=== PATIENT | female | born 1955 | race Caucasian/White ===

== ENCOUNTER 2019-11-02 09:23 | Emergency (ER) | payer OTHER, SELFPAY ==
--- NOTE | ~2019-11-02 | XR_ITS ---
XR ankle LT min 3V 11/02/2019 09:47 INDICATION: Left ankle pain and swelling PROCEDURE: 4 views left ankle COMPARISON: No prior studies for comparison. FINDINGS: Fracture, dislocation or subluxation is not identified. Mild lateral soft tissue swelling. Ankle mortise intact. No foreign bodies are identified. IMPRESSION: 1: NO ACUTE BONE OR JOINT ABNORMALITY IDENTIFIED. Reviewed, dictated and finalized at location A.
--- NOTE | 2019-11-02 09:29 | ED.LOWEXIN ---
HPI - Extremity Injury (Lower) General Chief Complaint: Extremity Injury, Lower Stated Complaint: left ankle sprain Time Seen by Provider: 11/02/19 09:29 Source: patient and RN notes reviewed History of Present Illness HPI Narrative: Patient is a 64-year-old female that presents the urgent care with complaints of left ankle sprain. Patient states that she rolled her left ankle while doing yard work yesterday. Patient states that the swelling has increased since yesterday. Patient has been ambulating on the extremity. Patient states that she has been icing and elevating the left ankle. Has not taken anything oral for pain. Denies any other acute complaints or injuries. No acute distress noted. Patient had plan of care. Related Data Home Medications Medication Instructions Recorded Confirmed spironolactone 25 mg tablet 25 mg PO DAILY 07/02/19 11/02/19 trazodone 50 mg tablet 50 mg PO BID 07/02/19 11/02/19 Allergies Allergy/AdvReac Type Severity Reaction Status Date / Time No Known Allergies Allergy Mild Verified 11/02/19 09:29 Review of Systems Review of Systems: Narrative: CONSTITUTIONAL: Denies fever, chills, or sweats. EYES: Denies visual changes, redness, or discharge. ENT: Denies rhinorrhea, congestion, sore throat, or otalgia. CARDIOVASCULAR: Denies chest pain, palpitations, or edema. RESPIRATORY: Denies cough or dyspnea. GASTROINTESTINAL: Denies abdominal pain, nausea, vomiting, or diarrhea. GENITOURINARY: Denies dysuria or hematuria. SKIN: Denies rash or itching. MUSCULOSKELETAL: Reports of left ankle pain and swelling due to injury NEUROLOGIC: Denies headache, numbness, or weakness. All other systems reviewed are negative, except as documented in HPI. PMFSH Social History Social History Smoking status: Never smoker Second hand tobacco smoke exposure: No Alcohol intake: never Gender identity (if verbalized by the patient): Female Comments At the time of my signature, I reviewed and agree with the nursing past medical, surgical, social, and family history. There is no relevant family history pertinent to the patient complaint. Exam Narrative: Exam Narrative: GENERAL: This is a well-nourished, well-developed patient, in no apparent distress. HEAD: normocephalic, atraumatic. EYES: PERRL. Sclera clear/white. Vision is grossly intact. EARS: External ears normal NOSE: External nose normal with no obvious nasal discharge THROAT: Mucous membranes moist NECK: Neck supple SKIN: warm, intact with no suspicious lesions or rash, good texture and turgor. NEURO: awake, alert, and oriented to person, place and time. There were no obvious focal neurologic abnormalities. EXTREMITIES: Moderate tenderness and edema noted to the lateral left malleolus. Left pedal pulse positive and strong. Left lower extremity capillary refill less than 2 seconds. Range of motion within normal limits, pain noted. Course Vital Signs Vital signs: Vital Signs Temperature 98.9 F 11/02/19 09:40 Pulse Rate 87 11/02/19 09:40 Respiratory Rate 16 11/02/19 09:40 Blood Pressure 138/73 11/02/19 09:40 Pulse Oximetry 98 11/02/19 09:40 Temperature 98.9 F 11/02/19 09:40 Pulse Rate 87 11/02/19 09:40 Respiratory Rate 16 11/02/19 09:40 Blood Pressure 138/73 11/02/19 09:40 Pulse Oximetry 98 11/02/19 09:40 Reviewed MDM - Extremity Injury (Lower) MDM Narrative Medical decision making narrative: Reviewed x-ray results with the patient. Patient is aware there is no fracture or bone abnormality noted on the x-ray. Advised the patient to use Forest wrap to the left ankle for comfort and support. Continue to elevate and ice. May use Tylenol/ibuprofen as needed for pain. Limit weightbearing activity until tolerated as normal. Wear supportive shoe. Follow-up with PCP within 2 to 5 days or for worsening symptoms failure to improve Differential Diagnosis Different
[2019-11-02 09:40] VITALS: BP 138/73; PULSE 87; RESP 16; TEMP 37.2; O2SAT 98
== END 2019-11-02 10:05 | disposition home or self-care (01) ==
PROVIDERS: Emergency Provider Nurse Practitioner Family; PCP Family Medicine
DX: S93.402A Sprain of unspecified ligament of left ankle, initial encounter (principal); W18.49XA Other slipping, tripping and stumbling without falling, initial encounter
CPT/HCPCS: 73610; 99213; G0463

== ENCOUNTER → 2021-02-05 07:17 | Outpatient (CLI) | payer OTHER, SELFPAY ==
[2021-02-06 21:41] LABS: SARS-CoV-2 RNA PCR Negative
== END ==
PROVIDERS: PCP Family Medicine; Visit Provider Physician Assistant
DX: Z20.822 Contact with and (suspected) exposure to COVID-19 (principal); R05 Cough
CPT/HCPCS: C9803; U0003; U0005

== ENCOUNTER → 2022-12-05 12:51 | Outpatient (CLI) | payer MEDICARE, SELFPAY ==
--- NOTE | ~2022-12-05 | US_ITS ---
. EXAMINATION: US soft tissue LE RT DATE: 12/05/2022 13:22 INDICATION: Right thigh mass. TECHNIQUE: Multiple grayscale and Doppler ultrasound images of the right thigh were obtained. COMPARISON: None FINDINGS: There are 2.0 cm, 1.5 cm, and 1.6 cm isoechoic subcutaneous masses in the right thigh. IMPRESSION: 1. Three subcutaneous masses in the right thigh, likely lipomas. Reviewed, dictated and finalized at location A.
--- NOTE | ~2022-12-05 | US_ITS ---
EXAMINATION: US soft tissue LE DATE: 12/05/2022 13:22 INDICATION: Left thigh mass. TECHNIQUE: Multiple grayscale and Doppler ultrasound images of the left thigh were obtained. COMPARISON: None FINDINGS: There are 1.5 cm and 0.4 cm isoechoic subcutaneous masses in left thigh. IMPRESSION: 1. Subcutaneous masses in left thigh, likely lipomas. Reviewed, dictated and finalized at location A.
== END ==
PROVIDERS: PCP Family Medicine; Visit Provider Physician Assistant
DX: R22.41 Localized swelling, mass and lump, right lower limb (principal); R22.42 Localized swelling, mass and lump, left lower limb
CPT/HCPCS: 76882

== ENCOUNTER 2022-12-29 10:51 | Emergency (ER) | payer MEDICARE, SELFPAY ==
--- NOTE | ~2022-12-29 | XR_ITS ---
EXAMINATION: XR shoulder LT min 2V INDICATION: Left shoulder pain TECHNIQUE: Four views of the left shoulder are submitted. COMPARISON: None FINDINGS: Normal alignment. No fracture. There is mild osteoarthritis of the glenohumeral and acromio clavicular joints. Soft tissues are unremarkable. IMPRESSION: 1. No acute osseous abnormality. Reviewed, dictated and finalized at location L.
[2022-12-29 11:08] VITALS: BP 142/65; PULSE 92; RESP 16; TEMP 36.4; O2SAT 98
--- NOTE | 2022-12-29 12:07 | ED.EXTPRO ---
HPI - Extremity Problem General Chief complaint: Extremity Injury, Upper Stated complaint: left shoulder pain Time Seen by Provider: 12/29/22 11:56 Source: patient and RN notes reviewed Mode of arrival: ambulatory Limitations: no limitations History of Present Illness HPI Narrative: Patient presents today complaining of left shoulder pain. She fell from the 3rd rung of the ladder onto grass onto her left elbow and upper arm 2 days ago. Yesterday she felt some tingling in her fingers, but this has since resolved. She currently rates her pain 5/10 and has been taking Tylenol with some short-term relief. Related Data Home Medications Medication Instructions Recorded Confirmed cholecalciferol (vitamin D3) 250 250 mcg PO DAILY 12/29/22 12/29/22 mcg (10,000 unit) tablet Allergies Allergy/AdvReac Type Severity Reaction Status Date / Time No Known Allergies Allergy Mild Verified 12/29/22 11:27 Review of Systems Review of Systems: CONSTITUTIONAL: Denies body aches, fever, chills, or sweats. EYES: Denies visual changes, redness, or discharge. ENT: Denies rhinorrhea, congestion, sore throat, or otalgia. CARDIOVASCULAR: Denies chest pain, palpitations, or edema. RESPIRATORY: Denies cough or dyspnea. GASTROINTESTINAL: Denies abdominal pain, nausea, vomiting, or diarrhea. GENITOURINARY: Denies dysuria or hematuria. SKIN: Denies rash, itching, or wounds. MUSCULOSKELETAL: Denies back pain, or myalgia.+ left shoulder pain NEUROLOGIC: Denies headache, numbness, tingling, or weakness. PSYCH: Denies depression or anxiety. [facility] Past Medical History Medical History Arthritis HLD (hyperlipidemia) Mitral valve regurgitation Normal colonoscopy (~2012) Surgical History Surgical History H/O breast augmentation H/O excision of mass ~10 years ago excision of RLE skin mass, excision RUE skin mass. Skin cancer screening Basal cell, Removal of face and back, July 2021. Family History Family History Mother Patient's mother is Other Carcinoma of colon Diabetes mellitus Family history of coronary artery disease Family history of malignant neoplasm of breast in first degree relative Family history of malignant neoplasm of urinary bladder Family history of primary malignant neoplasm of liver Social History Social History Smoking status: Never smoker Second hand tobacco smoke exposure: No Alcohol intake: never Substance use: never Substance use type: does not use Lack of Transportation: No Lack of Food: Never True Current Housing: I Have Housing Concerned About Future Housing: No Difficulty Paying Gas/Electric Bills: No Difficulty Paying for Meds: No Currently Unemployed: No Education: High School Diploma/GED Difficulty w/ Childcare or Family Care: No Living arrangements: with family Occupation/Education: retired Gender identity (if verbalized by the patient): Female Comments At time of signature, I have reviewed and agree with nursing past medical, surgical, social and family history unless otherwise noted. Please see nursing chart for further information. There is no relevant family history pertinent to the presenting complaint Exam Narrative: GENERAL: Well-appearing, well-nourished, and in no acute distress. HEAD: Normocephalic, atraumatic. EYES: EOMI. No redness or drainage. Conjunctivae normal. ENT: Mucous membranes pink and moist. NECK: Normal AROM. CHEST: No respiratory distress. EXTREMITIES: Left shoulder: Some mild tenderness to the trapezius and left cervical paraspinal muscles. No bony tenderness about the shoulder or clavicle. No bony tenderness of the humerus. No tenderness of the olecranon
== END 2022-12-29 12:18 | disposition home or self-care (01) ==
PROVIDERS: Emergency Provider Nurse Practitioner; PCP Family Medicine
DX: S46.812A Strain of other muscles, fascia and tendons at shoulder and upper arm level, left arm, initial encounter (principal); W11.XXXA Fall on and from ladder, initial encounter; M19.90 Unspecified osteoarthritis, unspecified site; E78.5 Hyperlipidemia, unspecified; I34.0 Nonrheumatic mitral (valve) insufficiency; Z85.828 Personal history of other malignant neoplasm of skin
CPT/HCPCS: 73030; 99213; G0463

== ENCOUNTER 2023-07-07 13:37 | Outpatient (CLI) | payer MEDICARE, SELFPAY ==
--- NOTE | ~2023-07-07 | US_ITS ---
EXAMINATION: US soft tissue LE LT DATE: 07/07/2023 14:34 INDICATION: Benign lipomatous neoplasm of skin and subcutaneous tissue. TECHNIQUE: Multiple grayscale and Doppler ultrasound images of the left lower limb were obtained. COMPARISON: Ultrasound 12/05/2022 FINDINGS: There is no abnormal mass in the patient's areas of concern in left thigh. IMPRESSION: 1. No abnormal mass in the patient's areas of concern in left thigh. Reviewed, dictated and finalized at location E. 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
--- NOTE | ~2023-07-07 | US_ITS ---
EXAMINATION: US soft tissue LE RT DATE: 07/07/2023 14:34 INDICATION: Benign lipomatous neoplasm of skin and subcutaneous tissues. TECHNIQUE: Multiple grayscale and Doppler ultrasound images of the right lower limb were obtained. COMPARISON: Ultrasound 12/05/2022 FINDINGS: There are 2.2 cm and 1.7 cm subcutaneous masses in right thigh that are slightly hyperechoi c to subcutaneous fat with similar echotexture to subcutaneous fat. IMPRESSION: 1. Two subcutaneous masses in right thigh, consistent with lipomas. Reviewed, dictated and finalized at location E. CIATE PROFESSOR OF ENGINEERING
== END 2023-07-07 13:38 | disposition home or self-care (01) ==
PROVIDERS: PCP Family Medicine; Visit Provider Surgery
DX: D17.24 Benign lipomatous neoplasm of skin and subcutaneous tissue of left leg (principal); D17.23 Benign lipomatous neoplasm of skin and subcutaneous tissue of right leg; R22.41 Localized swelling, mass and lump, right lower limb
CPT/HCPCS: 76882

== ENCOUNTER 2024-11-16 09:55 | Emergency (ER) | payer MEDICARE, SELFPAY ==
[2024-11-16 10:18] VITALS: BP 128/79; PULSE 93; RESP 16; TEMP 36.6; O2SAT 99
--- NOTE | 2024-11-16 10:25 | ED.URI ---
HPI - URI/Sore Throat General Chief Complaint: Upper Respiratory Infection Stated Complaint: Sinus/Nose Wound Time Seen by Provider: 11/16/24 10:26 Source: patient, RN notes reviewed and old records reviewed Mode of arrival: ambulatory Limitations: no limitations History of Present Illness HPI Narrative: 69 year old female presents to [facility] care with complaints of sore throat,runny nose and some body aches with fatigue for one week duration. Patient reports that she was also ill for awhile with similar symptoms in October which seemed to improve after about a week while she was in [place]. Patient reports that she has been taking Tylenol cold medication and Coricidin brand medication also. Patient has irritated area under her nose from all the sinus drainage and has felt feverish. Patient reports that she did do a home COVID test on Monday which was negative. MD elicited complaint: fever (has felt feverish), cough, sore throat, rhinorrhea, nasal congestion and sinus pain Pertinent past history: sinusitis Onset (ago): week(s) (1 week) Consistency: constant Pain scale (0-10): 4 Description of mucous: clear Able to tolerate fluids by mouth: Yes Treatments prior to arrival: cold medicine (Tylenol cold medication, Coricidin) Related Data Home Medications Medication Instructions Recorded Confirmed Last Taken Type cholecalciferol (vitamin D3) 250 250 mcg PO DAILY 12/29/22 07/29/24 Unknown History mcg (10,000 unit) tablet Allergies Allergy/AdvReac Type Severity Reaction Status Date / Time No Known Allergies Allergy Mild Verified 11/16/24 10:17 Review of Systems Review of Systems: CONSTITUTIONAL: Reports malaise, chills, sweats, has felt feverish EYES: Denies visual changes, redness, or discharge. ENT: Reports rhinorrhea, congestion, sinus pain,no otalgia and positive sore throat. CARDIOVASCULAR: Denies chest pain, palpitations, or edema. RESPIRATORY: Reports occasional cough. Denies dyspnea. GASTROINTESTINAL: Denies abdominal pain, nausea, vomiting, diarrhea SKIN: Denies rash or itching. MUSCULOSKELETAL:Reports some myalgia. NEUROLOGIC: Denies headache. All systems reviewed & are unremarkable except as noted in HPI and below PMFSH Past Medical History Medical History Squamous cell carcinoma of left shoulder Basal cell carcinoma of nose Mitral valve regurgitation Normal colonoscopy (~2012) HLD (hyperlipidemia) Arthritis Surgical History Surgical History H/O excision of mass ~10 years ago excision of RLE skin mass, excision RUE skin mass. Skin cancer screening Basal cell, Removal of face and back, July 2021. H/O breast augmentation Family History Family History Mother Patient's mother is Other Carcinoma of colon Diabetes mellitus Family history of coronary artery disease Family history of malignant neoplasm of breast in first degree relative Family history of malignant neoplasm of urinary bladder Family history of primary malignant neoplasm of liver Social History Social History Smoking status: Never smoker Second hand tobacco smoke exposure: No Alcohol intake: never Substance use: never Substance use type: does not use Lack of Transportation: No Lack of Food: Never True Current Housing: I Have Housing Concerned About Future Housing: No Difficulty Paying Gas/Electric Bills: No Difficulty Paying for Meds: No Currently Unemployed: No Education: High School Diploma/GED Difficulty w/ Childcare or Family Care: No Living arrangements: with family Occupation/Education: retired Gender identity (if verbalized by the patient): Female Comments At time of signature, agree with nursing past medical, surgical, social and family history. There is no relevant family history pertinent to the presenting complaint Exam Narrative: GENERAL: Well-appearing, well-nourished, and in no acute distress. HEAD: Normocephalic EYES: PERRLA, conjunctivae clear ENT: Nares clear, turbinates edematous and erythematous, clear discharge. Mucous membranes moist. TM pearly terrazas with dull light reflex bilaterally; no tragal tenderness. Oropharynx erythematous without lesions. Tonsils not enlarged and without exudate, no drooling, no hoarseness, no trismus, uvula midline.post nasal drainage noted NECK: Supple. No lymphadenopathy CHEST: Clear to auscultation, breath sounds equal. No wheezing, rhonchi, rales, or stridor. No respiratory distress, speaks in full sentences. occasional dry cough noted SAO2 99% on room air HEART: Regular rate and rhythm. No murmur heard. SKIN: Warm, dry, excoriated tissue under nares from sinus congestion and frequent blowing of nose. NEURO: Alert and oriented x3. PSYCH: Normal mood and affect Course Course Emergency Course: Patient is aware of diagnosis, understands and agrees to treatment plan. Anticipatory guidance given. Patient agrees to follow-up as directed and is aware of reasons to seek care at the emergency department. Portions of this record may have been created with voice recognition software Level of Care: Express Care Visit Vital Signs Vital signs: Vital Signs Temperature 36.6 C 11/16/24 10:18 Pulse Rate 93 11/16/24 10:18 Respiratory Rate 16 11/16/24 10:18 Blood Pressure 128/79 11/16/24 10:18 Pulse Oximetry 99 11/16/24 10:18 Oxygen Delivery Room Air 11/16/24 10:18 Temperature 36.6 C 11/16/24 10:18 Pulse Rate 93 11/16/24 10:18 Respiratory Rate 16 11/16/24 10:18 Blood Pressure 128/79 11/16/24 10:18 Pulse Oximetry 99 11/16/24 10:18 Oxygen Delivery Room Air 11/16/24 10:18 Reviewed MDM - URI/Sore Throat MDM Narrative Medical decision making narrative: Differential diagnosis considered: Shine virus, strep pharyngitis, allergic rhinitis, upper respiratory tract infection, sinusitis, rhinosinusitis, nasopharyngitis. viral pharyngitis, otitis media, otitis externa, pneumonia, bronchitis, viral cough syndrome, viral syndrome, and influenza. Exam findings show no acute concerns or changes; patient is non-toxic appearing and is in no distress. Patient is appropriate for outpatient treatment and follow-up. Differential Diagnosis Differential diagnosis: Likely upper respiratory infection, sinusitis, viral infection, pharyngitis and other Medical Records Attestation: I reviewed the patient's medical records. Lab Data Attestation: I reviewed the patient's lab results. Lab results narrative: strep screen negative, culture sent Critical Care Time Critical Care Time Critical Care Time: No Discharge Plan Discharge Clinical Impression: Sinusitis Qualifiers: Sinusitis location: pansinusitis Chronicity: acute Recurrence: non-recurrent Qualified Code(s): J01.40 - Acute pansinusitis, unspecified Patient Disposition: Home Condition: Stable Instructions: Antibiotic Form, Sinusitis (ED) Additional Instructions: Increase fluids especially juices and water [id number] cough and cold medicine of your choice for your symptoms Zyrtec Claritin or Cheryl daily include Coricidin brand decongestant Tylenol or ibuprofen for any fever pain heat to the face 20-30 minutes 4-6 times a day for pain Salt water gargles, throat lozenges or throat sprays as desired Antibiotic as directed--finished the medication If your symptoms persist, change or worsen significantly before you can contact your personal physician then please, without delay, go to the emergency department for further evaluation. Follow-up with PCP in 7-10 days or sooner if needed Follow up with PCP soon in regards to your blood pressure which is elevated above threshold for referral. Blood pressure above 120/80 may indicate pre-hypertension. Minimal elevation systolic 128/79 Patient Language: Estonian Prescriptions: New amoxicillin-pot clavulanate 875-125 mg tablet 1 tablet PO Q12H Qty: 20 0RF Rx Instructions: take probiotics while taking this medication No Action cholecalciferol (vitamin D3) 250 mcg (10,000 unit) Tablet 250 mcg PO DAILY prednisone 20 mg tablet 20 mg PO DAILY Qty: 5 0RF trazodone 50 mg tablet 25 mg PO QHS Qty: 45 3RF triamcinolone acetonide 0.1 % cream 1 applic topical BID Qty: 15 0RF meloxicam 15 mg tablet 15 mg PO DAILY Qty: 30 3RF Follow-up/Referrals: Melissa He MD [Primary Care Provider] - Time of Disposition: 10:39 Quality Vernon Coma Scale Eyes: Open Verbal: Oriented and Alert Motor: Follows Commands Elizabeth Coma Total Score: 15
[2024-11-16 10:28] LABS: EDSTREPNEGPOS1 Negative (Negative)
== END 2024-11-16 10:53 | disposition home or self-care (01) ==
PROVIDERS: Emergency Provider Registered Nurse; PCP Family Medicine
DX: J01.40 Acute pansinusitis, unspecified (principal); E78.5 Hyperlipidemia, unspecified; M19.90 Unspecified osteoarthritis, unspecified site; I34.0 Nonrheumatic mitral (valve) insufficiency; Z85.828 Personal history of other malignant neoplasm of skin
CPT/HCPCS: 87081; 87880; 99213; G0463

== ENCOUNTER 2025-02-07 10:08 | Outpatient (CLI) | payer MEDICARE, SELFPAY ==
--- NOTE | ~2025-02-07 | DEXA_ITS ---
Bone Density Report Name: JORDANA BAEZ Age: 69 Sex: Female Ethnicity: White Date of : 1955 Indication: postmenopausal; screening for osteoporosis; Referring Provider: JEREMI PUENTE Study: Bone densitometry was performed. Exam Date: February 07, 2025 Accession number: [id number] Bone Density: Region BMD T-score Z-score Classification AP Spine(L1-L4) 1.030 -0.2 1.8 Normal Femoral Neck (Left) 0.782 -0.6 1.1 Normal Total Hip (Left) 0.919 -0.2 1.2 Normal Femoral Neck (Right) 0.796 -0.5 1.2 Normal Total Hip (Right) 0.921 -0.2 1.2 Normal Total Hip Mean 0.920 -0.2 1.2 Normal World Health Organization criteria for BMD impression classify patients as: Normal (T-score at or above -1.0), Osteopenia (T-score between -1.0 and -2.5), or Osteoporosis (T-score at or below -2.5). 10-year Fracture Risk: FRAX not reported because: All T-scores for Spine Total, Hip Total, Femoral Neck at or above -1.0 Clinical Information Provided by Patient: Patient maximum height was 64 No regular weight bearing exercise Drinks caffeinated beverages Onset of menses at age 13 Number of children 0 Impression: The patient has normal bone mass. Discussion: BONE DENSITY IS ABOVE THE MINIMUM DESIRABLE LEVEL AT ALL SKELETAL SITES TESTED. This patient?s bone mineral density is above the minimum desirable level (T-score -1.0 or better) at all sites measured. The patient should follow a healthful lifestyle (good nutrition with adequate calcium and vitamin D, and appropriate weight-bearing exercise). Follow-Up: Consider repeating this study in 5 years or sooner if there is some new clinical indication. Reported by: FELICIA on 02/07/2025 11:01:00 AM. Reviewed, dictated and finalized at location A.
--- OUTSIDE RECORDS SUMMARY | 2025-02-07 10:17 | XMS_ITS | Clinical Summary ---
[facility] Address [address] Attn: Epic Prelude ADT [place] [address] Care Team Providers Care Commissioned Fire Officer Name Role Phone Unavailable Primary Care Provider Unavailabl e Allergies No known active allergies Social History Tobacco Use Types Packs/Day Years Used Date Smoking Tobacco: Never Smokeless Tobacco: Never Alcohol Use Standard Drinks/Week Comments Not Asked 0 (1 standard drink = 0.6 oz pur e alcohol) Comments Unknown Sex and Gender Information Value Date Recorded Sex Assigned at Not on file Legal Sex Female 6:43 AM NURSING OFFICER Gender Identity Not on file Sexual Orientation Not on file Last Filed Vital Signs Vital Sign Reading Time Taken Comments Blood Pressure 118/80 01/19/2015 11:10 AM CDT Pulse 90 01/19/2015 11:10 AM CDT Temperature 36.7 C (98 F) 01/19/2015 11:10 AM CDT Respiratory Rate 18 01/19/2015 11:10 AM CDT Oxygen Saturation - - Inhaled Oxygen Concentration - - Weight 86.7 kg (191 lb 3.2 oz) 01/19/2015 11:10 AM CDT Height 162.6 cm (5' 4) 01/19/2015 11:10 AM CDT Body Mass Index 32.82 01/19/2015 11:10 AM CDT Plan of Treatment Health Maintenance Due Date Last Done Comments DTAP/TDAP/TD VACCINES (1 - Tdap) 1975 BREAST CANCER SCREENING 1996 COLORECTAL SCREENING 2001 Colorectal Cancer Screening 2001 FIT-DNA Q 3 years 2001 FIT/FOBT Q 1 year 2001 Flex Sig/CT Colonography Q 5 years 2001 PNEUMOCOCCAL VACCINE 50+ YEARS (1 of 1 - PCV) 08/26/19 07 ZOSTER VACCINE (1 of 2) 2006 OSTEOPOROSIS SCREENING 2021 INFLUENZA VACCINE (#1) 2025 RSV VACCINE (60+ or ) (1 - 1-dose 75+ series) 2031
--- OUTSIDE RECORDS SUMMARY | 2025-02-07 10:17 | XMS_ITS | Encounter Summary ---
Author Organization [facility] Address [address] [place] [address] Care Team Providers Care Director Of Player Personnel Name Role Phone Melissa He MD Primary Care Provider [phone] Encounter Details Date Type Department Care Team (Late st Contact Info) Description 10/17/2017 [place] Only [facility] [place] [address] [place] [id number] Scanning, Provider Social History Tobacco Use Types Packs/Day Years Used Date Smoking Tobacco: Never Smokeless Tobacco: Never Alcohol Use Standard Drinks/Week Comments No 0 (1 standard drink = 0.6 oz pur e alcohol) Comments Unknown Sex and Gender Information Value Date Recorded Sex Assigned at Not on file Legal Sex Female 6:48 AM GUEST RELATIONS COORDINATOR Gender Identity Not on file Sexual Orientation Not on file documented as of this encounter Plan of Treatment Not on file documented as of this encounter Procedures Procedure Name Priority Date/Time Associated Diagnosis Comments SCAN - LABS 10/17/2017 CARDIOLOGY DOCUMENT SCAN 10/17/2017 documented in this encounter Results * SCAN - LABS (10/17/2017) us Provider Scanning Final Result * Cardiology Document Scan (10/17/2017) Anatomical Region Laterality Modality Other us Provider Scanning CV CARDIAC SERVICES PROCEDURES Final Result documented in this encounter Visit Diagnoses Not on filedocumented in this encounter Additional Health Concerns Infection Onset Date Last Indicated Resolved Time COVID: Suspected 07/28/2024 07/28/2024 07/28/2024 12:19 PM GUEST RELATIONS COORDINATOR documented as of this encounter Care Teams Director Of Player Personnel Relationship Specialty Start Date End Date Melissa He MD PCP - General Family Medicine 09/14/17 documented as of this encounter
--- OUTSIDE RECORDS SUMMARY | 2025-02-07 10:17 | XMS_ITS | Encounter Summary ---
Author Organization [facility] Address [address] [place] [address] Phone Care Team Providers Care Soap Drier Tender Name Role Phone Melissa He MD Primary Care Provider [phone] Encounter Details Date Type Department Care Team (Late st Contact Info) Description 01/01/2018 Telephone [facility] Cardiology [address] [facility] [address] [place] [address] [place] [address] Donald Shin Social History Tobacco Use Types Packs/Day Years Used Date Smoking Tobacco: Never Smokeless Tobacco: Never Alcohol Use Standard Drinks/Week Comments No 0 (1 standard drink = 0.6 oz pur e alcohol) Comments Unknown Sex and Gender Information Value Date Recorded Sex Assigned at Not on file Legal Sex Female 6:48 AM PUBLIC HEALTH PHYSICIAN Gender Identity Not on file Sexual Orientation Not on file documented as of this encounter Plan of Treatment Not on file documented as of this encounter Visit Diagnoses Not on filedocumented in this encounter Additional Health Concerns Infection Onset Date Last Indicated Resolved Time COVID: Suspected 07/28/2024 07/28/2024 07/28/2024 12:19 PM PUBLIC HEALTH PHYSICIAN documented as of this encounter Care Teams Soap Drier Tender Relationship Specialty Start Date End Date Melissa He MD PCP - General Family Medicine 09/14/17 documented as of this encounter
--- OUTSIDE RECORDS SUMMARY | 2025-02-07 10:17 | XMS_ITS | Clinical Summary ---
Author Organization [facility] Address [address] [place] [address] Care Team Providers Care Sustainable Design Coordinator Name Role Phone Melissa He MD Primary Care Provider [phone] Source Comments [facility],non-owned Affiliates and Associated Physician Practices is amultiple site organization consisting of ambulatory clinics and hospital sitesin [place], [place], [place] and [place]. This disclosure is being madepursuant to the Care Everywhere program and may not contain all information available regarding this patient. Last updated 18.[facility] Allergies No known active allergies Medications * Be aware that medications may not be up to date on this document. Alwaysverify current medications with the patient. TRAZODONE HCL PO Act stu Furosemide (LASIX PO) Active Active Problems No known active problems Social History Tobacco Use Types Packs/Day Years Used Date Smoking Tobacco: Never Smokeless Tobacco: Never Comments Unknown Sex and Gender Information Value Date Recorded Sex Assigned at Not on file Legal Sex Female 10:18 AM CDT Gender Identity Not on file Sexual Orientation Not on file Last Filed Vital Signs Vital Sign Reading Time Taken Comments Blood Pressure 110/70 02/09/2018 12:54 PM CDT Pulse 90 02/09/2018 12:54 PM CDT Temperature 36.4 C (97.5 F) 02/09/2018 12:54 PM CDT Respiratory Rate 16 02/09/2018 12:54 PM CDT Oxygen Saturation 98% 02/09/2018 12:54 PM CDT Inhaled Oxygen Concentration - - Weight 87.5 kg (193 lb) 02/09/2018 12:54 PM CDT Height 162.6 cm (5' 4) 02/09/2018 12:54 PM CDT Body Mass Index 33.13 02/09/2018 12:54 PM CDT Plan of Treatment Health Maintenance Due Date Last Done Comments BONE DENSITY TESTING 1955 COLOGUARD (AGES 45-75) - COL ON CA SCREENING 1955 COLON MONITORING 1955 COLONOSCOPY - COLON CA SCREENING 1955 CT COLONOGRAPHY - COLON CA SCREENING 1955 Colorectal Cancer Screening 1955 FIT - COLON CA SCREENING 1955 FLEX SIG - COLON CA SCREENING 1955 LIPID TESTING 1955 MAMMOGRAM 1955 HEPATITIS C SCREENING 08/22/1974 DTAP/TDAP/TD VACCINES (1 - Tdap) 1975 PNEUMOCOCCAL VACCINE 50+ (1 of 1 - PCV) 2006 ZOSTER VACCINE (1 of 2) 2006 SCREENING FOR DIABETES 02/09/2018 COVID-19 VACCINE (1 - 2023-2 5 season) 2024 DEPRESSION SCREENING 07/03/2024 INFLUENZA VACCINE (#1) 2025 Respiratory Syncytial Virus (RSV) Vaccine Pt: or over 60 yrs (1 - 1-dose 75+ series) 2031 HEPATITIS B VACCINE Aged Out No longe r eligible based on patient's age to complete this topic HIB VACCINE Aged Out No longer eligi ble based on patient's age to complete this topic HPV VACCINE Aged Out No longer eligi ble based on patient's age to complete this topic MENINGOCOCCAL (Group B) VACC INE SHARED DECISION-MAKING Aged Out No longer eligibl e based on patient's age to complete this topic MENINGOCOCCAL GROUPS A/C/Y/W VACCINE Aged Out No longer eligible b ased on patient's age to complete this topic Insurance [employer] Care Teams Sustainable Design Coordinator Relationship Specialty Start Date End Date Melissa He MD [address] [place] [address] PCP - General Family Medicine 02/09/18
--- OUTSIDE RECORDS SUMMARY | 2025-02-07 10:18 | XMS_ITS | Encounter Summary ---
Author Organization [facility] Address [address] [place] [address] Care Team Providers Care Tower Climber Name Role Phone Melissa He MD Primary Care Provider [phone] Encounter Details Date Type Department Care Team (Late st Contact Info) Description 09/13/2017 Orders Only [facility] Information Management [address] [place] [id number] Scanning, Provider Social History Tobacco Use Types Packs/Day Years Used Date Smoking Tobacco: Never Assessed Comments Unknown Sex and Gender Information Value Date Recorded Sex Assigned at Not on file Legal Sex Female 6:48 AM LEASING MANAGER Gender Identity Not on file Sexual Orientation Not on file documented as of this encounter Plan of Treatment Not on file documented as of this encounter Procedures Procedure Name Priority Date/Time Associated Diagnosis Comments CARDIOLOGY DOCUMENT SCAN 09/13/2017 documented in this encounter Results * Cardiology Document Scan (09/13/2017) Anatomical Region Laterality Modality Other us Provider Scanning CV CARDIAC SERVICES PROCEDURES Final Result documented in this encounter Visit Diagnoses Not on filedocumented in this encounter Additional Health Concerns Infection Onset Date Last Indicated Resolved Time COVID: Suspected 07/28/2024 07/28/2024 07/28/2024 12:19 PM LEASING MANAGER documented as of this encounter Care Teams Tower Climber Relationship Specialty Start Date End Date Melissa He MD PCP - General Family Medicine 09/14/17 documented as of this encounter
--- OUTSIDE RECORDS SUMMARY | 2025-02-07 10:18 | XMS_ITS | Clinical Summary ---
Author Organization [facility] [address] Address [address] [place] [address] Care Team Providers Care Rn Hemodialysis Name Role Phone Melissa He MD Primary Care Provider [phone] Allergies No known active allergies Medications nitroglycerin (NITROSTAT) 0.4 mg SL tabletIndication s:Angina Place one under tongue if needed for heart discomfort or severe shortness of breath. May repeat in 5 min 25 tablet 8 Active spironolactone (ALDACTONE) 25 mg tablet Take 1 tablet (25 mg total) by mouth daily 90 tablet 3 1 Active traZODone (DESYREL) 50 mg tabletIndication s:Persistent disorder of initiating or maintaining sleep,Intrusion, repetitive, of sleep TAKE 1/2 - 1 TABLET BY MOUTH 30 MINS PRIOR TO BEDTIME 90 tablet 3 1 Active Active Problems Problem Noted Date Diagnosed Date Neoplasm of uncertain behavior of skin 1 Overview (03/18/2021): Added automatically from request for surgery [id number] Class 1 obesity due to exces s calories without serious comorbidity with body mass index (BMI) of 32.0 to 32.9 in adult 02/03/2021 Tenosynovitis of finger 09/12/2019 Overview (09/16/2019): Chronic disease, onset associated with cat-bite/scratch in 12/2018. Initially associated cellulitis successfully treated with Augmentin, but recurrence of swelling and pain at site in 06/2019, not improved with antibiotics. No other associated symptoms. 07/25 MRI => R small finger flexor tenosynovitis and tendinitis, my represent infections S/p surgical I&D on 08/02 => no purulence, chronic inflammatory findings. All cultures negative. No path. 09/08 ultrasounds => extensive dorsal tissue swelling and mild hyperemia without fluid collection Assessment & Plan (10/09/2019 1:16 PM CDT): Extensive non-invasive testing was negative. Patient endorses slightly improved, waxing waning course. Though infections still on differential, a post-infectious inflammatory process is possible -- appreciate discussions with [facility] and Hand surgery => at this time, given the lack of an obvious nidus of pathology, obtaining tissues samples poses too high of risk for complication. If she were to experience sudden worsening, we can readdress feasibility of biopsy -- discussed with patient that antibiotic therapy would be inappropriate in the absence of a diagnosis -- recommended that best course is to observe closely for now; Dr. Sahu has agreed to continue to monitor -- offered that she could come back to clinic if there is any other concerns or worsening of symptoms Assessment & Plan (09/16/2019 9:28 AM CDT): Persistent, [id number] disease, no systemic symptoms. Differential for chronic, indolent tenosynovitis = undertreated typical bacterial infections vs atypical infection (bartonella, fungal, mycobacteria, mycoplasma, STI) vs non-infectious/inflammatory. -- ESR/CRP today => benign -- urine GC/CT NAAT, Tspot, RPR, serum bartonella serology, routine blood culture x2 => all negative -- ordered AFB, fungal blood culture and urine histo -> not obtained. Will reorder serum histo and cultures -- referral to [facility] for repeat biopsy: will send for path and special staining (AFB, PAS, gram), AFB/fungal/bacterial culture, bartonella PCR (may be more sensative that serum serology) -- Low threshold to send for 16s rRNA from biopsy tissue to fully evaluate for infectious etiology -- OK to try NSAIDs for inflammatory symptoms and continue to go to PT -- Long discussion with patient about potential infectious etiologies and what would be the therapeutic course if anything was identified. She agrees with plan and will f/u with multiple medical providers. -- no further surgical I&D needed at this time. Cellulitis of right upper extremity 07/29/2019 Overview (07/29/2019): Added automatically from request for surgery [id number] Persistent disorder of initiating or maintaining sleep 08/08/2018 Assessment & Plan (02/06/2019 10:09 AM CDT): She will practice good sleep hygiene habits maintaining a set sleep-wake pattern. She will turn off all electronic devices 1 hour prior to bedtime. She will take trazodone 50 mg 1/2 to 1 tablet 30 minutes prior to bedtime nightly. Assessment & Plan (08/08/2018 10:19 AM FEATHER BALER): She will practice good sleep hygiene habits having at least 1 hr of down time prior to bedtime in a room other than the bedroom. She will turn off all electronic appliance is 1 hr prior to bedtime. She will take her trazodone 50 mg 1/2 tablet 30 min prior to bedtime. She will not take any daytime naps. Intrusion, repetitive, of sleep 01/25/2018 Assessment & Plan (02/06/2019 10:09 AM CDT): She will practice good sleep hygiene habits maintaining a set sleep-wake pattern. She will turn off all electronic devices 1 hour prior to bedtime. She will take trazodone 50 mg 1/2 to 1 tablet 30 minutes prior to bedtime nightly. Assessment & Plan (08/08/2018 10:20 AM FEATHER BALER): She will practice good sleep hygiene habits having at least 1 hr of down time prior to bedtime in a room other than the bedroom. She will turn off all electronic appliance is 1 hr prior to bedtime. She will take her trazodone 50 mg 1/2 tablet 30 min prior to bedtime. She will not take any daytime naps. Menopause present 09/26/2017 KIDD (dyspnea on exertion) 09/19/2017 Assessment & Plan (09/19/2017 8:36 PM CDT): Ms. Loomis notes increased KIDD in the last few months. We will evaluate for underlying CAD or cardiomyopathy although clinically both are appear unlikely. She did have a hypertensive blood pressure response with her stress test, so perhaps she is having exertional HTN limiting her, and admits that she has had some weight gain so perhaps that and deconditioning are be contributing. The patient does have a heart murmur, but this sounds like some benign tricuspid regurgitation by exam. Abnormal stress test 09/19/2017 Assessment & Plan (09/19/2017 8:34 PM CDT): Patient's stress test showed ischemic ST depression consistent with possible CAD, but this may be a false-positive as well. Interestingly, her stress test in 2013 showed no ischemic changes. However, it appears that she had a very hypertensive blood pressure response on this stress test (193/130 mmHg) which may be contributing to the ischemic EKG changes. CHADWICK id EKG today, on my review, shows NSR rate 88, 2 PVCs. No ischemic changes. Otherwise her history is typical for CAD; perhaps her KIDD is an anginal equivalent. She has some risk factors for CAD. PVC's (premature ventricular contractions) 09/19 Assessment & Plan (09/19/2017 8:35 PM CDT): Patient has asymptomatic PVCs Resolved Problems Problem Noted Date Diagnosed Date Resolved Date Body mass index (BMI) of 31. 0 to 31.9 in adult 02/05/2020 02/03/2021 Gallstones 09/12/2019 Immunizations Immunization Administration Dates Next Due Flucelvax Influenza Quad 04/23/2018 Influenza, Quadrivalent, Doris l Culture-based MDCK, Preservative Free, Antibiotic Free, Intramuscular 04/24/2018 Influenza, Trivalent, IM (MDV) 04/25/2018 Tdap 01/18/2019 Surgical History Surgery Date Site/Laterality Comments BASAL CELL CARCINOMA EXCISION 07/03/2009 - 07/02/2010 Right face AUGMENTATION MAMMAPLASTY 07/03/1986 - 07/02/1987 Bilateral MASS EXCISION Right under right arm and right knee COLONOSCOPY 05/03/2018 - 06/01/2018 negative HAND SURGERY 07/2019, from a cat bite COSMETIC SURGERY 07/03/1986 - 07/02/1987 Medical History Medical History Date Comments Insomnia well controlled with meds KIDD (dyspnea on exertion) on spr ionolactone. Can go up flight of stairs without SOB. Arthritis left knee, hand Cancer (HCC) 2009 basaal -face. NO recurrence PONV (postoperative nausea and vomiting) Aortic regurgitation mild per EC HO--09/04/2018. STress test done 09/04/2018-->normal Heart disease Family History Medical History Relation Name Comments Cancer Father Ed Diabetes Father Ed Heart attack Father Ed Heart disease Father Ed Stroke Father Ed Alzheimer's disease Father's Brother 1 Darrell Heart attack Father's Brother 2 Ric Early Father's Brother 3 Rodrigo Heart attack Father's Brother 3 Rodrigo Arrhythmia Mother Jacy Cancer Mother Jacy Diabetes Mother Jacy Hypertension Mother Jacy Liver cancer Mother Jacy Vision loss Mother Jacy Alzheimer's disease Mother's Sister 1 Marley Heart attack Mother's Sister 2 Dara Stroke Paternal Grandfather Ric Alzheimer's disease Paternal Grandmother Juju Relation Name Status Comments Father Ed First RI 59 y.o ., CABG, heart aneurysm, ICD. Father's Brother 1 Darrell Father's Brother 2 Ric Father's Brother 3 Rodrigo Mother Jacy Mother's Sister 1 Marley Mother's Sister 2 Dara Paternal Grandfather Ric Paternal Grandmother Juju Social History Tobacco Use Types Packs/Day Years Used Date Smoking Tobacco: Never Smokeless Tobacco: Never Alcohol Use Standard Drinks/Week Comments No 0 (1 standard drink = 0.6 oz pur e alcohol) rarely-1x/year Personal Safety Answer Date Recorded Have you ever been in or are you currently in a harmful physical or emotional relationship or is someone making you feel afraid or unsafe? Denies 07/28/2024 Comments No Sex and Gender Information Value Date Recorded Sex Assigned at Not on file Legal Sex Female 6:48 AM FEATHER BALER Gender Identity Not on file Sexual Orientation Not on file Obstetrics History Last Filed Vital Signs Vital Sign Reading Time Taken Comments Blood Pressure 142/60 07/28/2024 3:35 PM FEATHER BALER Pulse 79 07/28/2024 3:35 PM FEATHER BALER Temperature 36.7 C (98 F) 07/28/2024 11:03 AM FEATHER BALER Respiratory Rate 18 07/28/2024 3:35 PM FEATHER BALER Oxygen Saturation 100% 07/28/2024 3:35 PM FEATHER BALER Inhaled Oxygen Concentration - - Weight 81.3 kg (179 lb 3.7 oz) 07/28/2024 11:03 AM FEATHER BALER Height 162.6 cm (5' 4) 07/28/2024 11:03 AM FEATHER BALER Body Mass Index 30.77 07/28/2024 11:03 AM FEATHER BALER Plan of Treatment Health Maintenance Due Date Last Done Comments Breast Cancer Screening-Mammogram 1955 Colon Cancer Screening-Colonoscopy 1955 Depression Screening 1955 Fall Risk Assessment 1955 Hepatitis C Screening 1955 Osteoporosis Screening-Bone Density Scan 1955 Hepatitis B Screening 1974 Pneumococcal vaccine 65+ (1 of 1 - PCV) 2006 Zoster Vaccine (1 of 2) 2006 Well Visit 65+ 2021 Influenza Vaccine (#1) 2025 8, 04/24/2018, 04/23/2018 DTaP/Tdap/Td Vaccine (2 - Td or Tdap) 01/18/2029 Insurance [employer] [facility] Member Subscriber Plan / Payer (Ef fective 2002-Present) Name:Vidya Loomis Member ID:[id number] Relation to Subscriber:Self Name:Vidya Loomis Subscriber ID:[id number] Payer ID:[id number] Type:[employer] HMO/PPO Address: [address] MEDICARE ADVANTAGE [facility] Member Subscriber Plan / Payer (Ef fective 2018-Present) Name:Vidya Loomis Dominick Member ID:[id number] Relation to Subscriber:Self Name:Vidya Loomis Subscriber ID:[id number] Payer ID:[id number] Type:[employer] HMO/PPO Address: [address] MEDICARE ADVANTAGE AET MEDICARE Care Teams Rn Hemodialysis Relationship Specialty Start Date End Date Melissa He MD PCP - General Family Medicine 09/14/17
== END 2025-02-07 10:09 | disposition home or self-care (01) ==
LOC: ANHIMG 10:15
PROVIDERS: PCP Family Medicine; Visit Provider Family Medicine
DX: Z78.0 Asymptomatic menopausal state (principal)
CPT/HCPCS: 77080